=== PATIENT | female | born 1935 | race Caucasian/White ===

== ENCOUNTER 2018-06-09 09:26 | Outpatient (CLI) | payer MEDICARE ==
--- NOTE | 2018-06-09 13:26 | PET ---
NUCLEAR MEDICINE FDG PET CT: (Positron Emission Tomography) DATE: 06/09/18 HISTORY: 83-year-old female with solitary pulmonary nodule. COMPARISON: none TECHNIQUE: IV injection F-18 Fluorodeoxyglucose (FDG) dose: 13.1 mCi PET and attenuation-correction CT performed from skull base to proximal thighs. FINDINGS: SUV (standard uptake value) numbers given are maximum SUV's: There is an approximately 2 x 1.5 cm focal nodular density with irregular, slightly spiculated margin s, broadly abutting the right posteromedial pleural surface. The QCLR maximum SUV reading on the PET- CT fusion image at this location is 2.3, not hypermetabolic. However, located a distance of a few christine timeters superior to this, there is an area of increased uptake with QCLR maximum SUV of 3.2. However , the attenuation correction CT image of this area does not demonstrate a nodule in this location. It is likely that this discrepancy is misregistration due to patient movement between acquisition of th e attenuation correct CT and acquisition of the PET images (perhaps due to differences in breathing b etween the 2 scans). There is a benign left adrenal nodule which is not hypermetabolic. 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 Within the right posterior lumen of the rectum, there is a small soft tissue density with a maximum Q CLR SUV of 6.5. No other foci of abnormally increased hypermetabolic activity neck, abdomen, or pelvi s. IMPRESSION: 1) Right lower lobe pulmonary nodule. Discrepancy between the PET images and the attenuation cor rection CT is probably misregistration. The nodule is probably hypermetabolic, and the actual SUV is probably 3.2, which would make this suspicious for lung cancer. 2) Small hypermetabolic focus in the rectal lumen: malignant polyp vs activity in stool. Recomm end correlation with colonoscopy or proctoscopy. BARBI Shelton POS: MARIO
== END 2018-06-09 09:27 | disposition home or self-care (01) ==
LOC: PET 09:26
PROVIDERS: ATTEND Internal Medicine Sleep Medicine
DX: R91.1 Solitary pulmonary nodule (principal)
CPT/HCPCS: 78815; A9552